=== PATIENT | female | born 1995 | race Caucasian/White ===

== ENCOUNTER 2021-06-11 22:16 | Observation (INO) | payer BC, OTHER ==
[2021-06-12] MEDS ORDERED: ONDANSETRON 4 MG/2 ML VIAL IVP STA ×2 (02:15→04:13)
[2021-06-12] MEDS ORDERED: SODIUM CHLORIDE 0.9% 1,000 ML IV STA ×2 (02:15→06:44)
[2021-06-12] MEDS ORDERED: ACETAMINOPHEN TAB 325 MG TAB PO STA (02:16)
[2021-06-12 02:49] LABS: Basophils % (A) 0 %; Eosinophils % (A) 0 %; HCT 44.6 % (34.0-46.0); HGB 15.1 gm/dL (11.4-16.0); Lymphocytes # (A) 1.3 k/uL (1.0-4.8); Lymphocytes % (A) 25 %; MCH 34.3 pg (25.0-35.0); MCHC 33.9 g/dL (31.0-37.0); MCV 101.1 fL (80.0-100.0); Mean Platelet Volume 8.4; Monocytes # (A) 0.5 k/uL (0-1.0); Monocytes % (A) 10 %; Neutrophils # (A) 3.2 k/uL (1.3-7.7); Neutrophils % (A) 61 %; Platelet Count 223 k/uL (150-450); RBC 4.41 m/uL (3.80-5.40); RDW 12.8 % (11.5-15.5); WBC 5.2 k/uL (3.8-10.6)
[2021-06-12 03:26] LABS: ALT 25 U/L (4-34); AST 41 U/L (14-36); African American GFR (CKD) >90 (>60 ml/min/1.73 sqM); Albumin 4.7 g/dL (3.5-5.0); Alkaline Phosphatase 40 U/L (38-126); Amylase 141 U/L (30-110); Anion Gap 21 mmol/L; Blood Urea Nitrogen 12 mg/dL (7-17); Calcium 9.9 mg/dL (8.4-10.2); Carbon Dioxide 14 mmol/L (22-30); Chloride 104 mmol/L (98-107); Glucose 146 mg/dL (74-99); Lipase 161 U/L (23-300); Non-African American GFR(CKD) 81 (>60 ml/min/1.73 sqM); Potassium 2.9 mmol/L (3.5-5.1); Sodium 139 mmol/L (137-145); Total Bilirubin 0.4 mg/dL (0.2-1.3); Total Protein 7.9 g/dL (6.3-8.2)
[2021-06-12 04:09] LABS: Appearance,Urine Cloudy (Clear); Bacteria,Urine Rare /hpf; Bilirubin,Urine Negative (Negative); Blood,Urine Negative (Negative); Color,Urine Yellow; Glucose,Urine (UA) 1+ (Negative); Hyaline Casts,Urine 18 /lpf (0-2); Leukocyte Esterase,Urine Negative (Negative); Mucus,Urine Many /hpf; Nitrite,Urine Negative (Negative); Protein,Urine 3+ (Negative); RBC,Urine 2 /hpf (0-5); Specific Gravity,Urine 1.039 (1.001-1.035); Squamous Epithelial Cell,Urine 2 /hpf (0-4); WBC,Urine 2 /hpf (0-5)
[2021-06-12 04:29] LABS: Ketones,Urine 3+ (Negative)
--- NOTE | 2021-06-12 04:30 | ED ---
General Adult HPI - General Chief complaint: Nausea/Vomiting/Diarrhea Stated complaint: Vomiting,SOB Time Seen by Provider: 06/12/21 02:15 Source: patient Mode of arrival: ambulatory Limitations: no limitations - History of Present Illness Initial comments: This patient is 25-year-old woman who presents to be evaluated for intractable vomiting. The patient states that she was in her usual state of health until on June 09. Patient began to have fevers, little bit of cough and then was also having vomiting. She states the symptoms worsened yesterday and she has not been able to keep much in way of fluids down. She has been trying to take Pedi alyte popsicles but even vomiting after that. The patient had been seen at clinic had nasal swabs sent that come back positive for influenza A. She did have code swab that was negative. Onset/Timin -: days(s) Consistency: constant Improves with: none Worsens with: none Associated Symptoms: cough, fever/chills, headaches, malaise, nausea/vomiting Treatments Prior to Arrival: none - Related Data Allergies Allergy/AdvReac Type Severity Reaction Status Date / Time No Known Allergies Allergy Verified 06/12/21 04:13 Review of Systems ROS Statement: Those systems with pertinent positive or pertinent negative responses have been documented in the HPI. ROS Other: All systems not noted in ROS Statement are negative. Constitutional: Reports: fever, chills Eyes: Denies: vision change ENT: Denies: ear pain, throat pain Respiratory: Reports: cough Cardiovascular: Reports: palpitations. Denies: chest pain, syncope Gastrointestinal: Reports: as per HPI, nausea, vomiting Genitourinary: Denies: dysuria, hematuria, abnormal menses Musculoskeletal: Denies: back pain Skin: Denies: rash Neurological: Reports: headache. Denies: weakness, numbness Past Medical History Past Medical History: No Reported History Additional Past Medical History / Comment(s): lump in breast. History of Any Multi-Drug Resistant Organisms: None Reported Past Surgical History: No Surgical Hx Reported Additional Past Surgical History / Comment(s): wisdom teeth Past Psychological History: No Psychological Hx Reported Smoking Status: Never smoker Past Alcohol Use History: Occasional Past Drug Use History: Marijuana General Exam Limitations: no limitations General appearance: alert, in no apparent distress Head exam: Present: atraumatic, normocephalic Eye exam: Present: normal appearance. Absent: scleral icterus, conjunctival injection ENT exam: Present: normal oropharynx Neck exam: Present: normal inspection Respiratory exam: Present: normal lung sounds bilaterally. Absent: respiratory distress, wheezes, rales, rhonchi, stridor Cardiovascular Exam: Present: regular rate, normal rhythm, normal heart sounds. Absent: systolic murmur, diastolic murmur, rubs, gallop GI/Abdominal exam: Present: soft. Absent: distended, tenderness, guarding, rebound, rigid, mass Extremities exam: Present: normal inspection, normal capillary refill. Absent: pedal edema, calf tenderness Back exam: Present: normal inspection. Absent: CVA tenderness (R), CVA tenderness (L) Neurological exam: Present: alert, oriented X3, CN II-XII intact. Absent: motor sensory deficit Skin exam: Present: warm, dry, intact, normal color. Absent: rash Course Vital Signs 06/12/21 06/12/21 06/12/21 00:05 00:12 00:49 Temperature 99.4 F 99.1 F Pulse Rate 83 62 Respiratory 20 Rate Blood Pressure 110/75 163/92 O2 Sat by Pulse 97 100 Oximetry 06/12/21 05:01 Temperature Pulse Rate 71 Respiratory 16 Rate Blood Pressure 109/71 O2 Sat by Pulse 100 Oximetry EKG Findings - EKG Results: EKG: interpreted by GIACOMO, sinus rhythm, normal axis, normal QRS, normal ST/T EKG shows: bradycardia (Rate 53 bpm) Medical Decision Making - Medical Decision Making Patient is a 25-year-old woman who presents with constellation of symptoms consistent with viral syndrome. While the patient was being triaged here she did have onset of generalized tonic-clonic seizure lasting between 30 and 60 seconds and spontaneously resolving. The patient did have approximately 3-5 minutes postictal period and then seemed to be back at baseline. The patient to have anion gap metabolic acidosis, most consistent with starvation ketoacidosis. The patient did have some glucose in the urine, estevan r appears that this urine specimen obtained after she had been placed on D50. - Lab Data Result diagrams: 06/12/21 02:15 06/12/21 02:15 Lab Results 06/12/21 06/12/21 06/12/21 Range/Units 02:15 02:15 02:15 WBC 5.2 (3.8-10.6) k/uL RBC 4.41 (3.80-5.40) m/uL Hgb 15.1 (11.4-16.0) gm/dL Hct 44.6 (34.0-46.0) % MCV 101.1 H (80.0-100.0) fL MCH 34.3 (25.0-35.0) pg MCHC 33.9 (31.0-37.0) g/dL RDW 12.8 (11.5-15.5) % Plt Count 223 (150-450) k/uL MPV 8.4 Neutrophils % 61 % Lymphocytes % 25 % Monocytes % 10 % Eosinophils % 0 % Basophils % 0 % Neutrophils # 3.2 (1.3-7.7) k/uL Lymphocytes # 1.3 (1.0-4.8) k/uL Monocytes # 0.5 (0-1.0) k/uL Eosinophils # 0.0 (0-0.7) k/uL Basophils # 0.0 (0-0.2) k/uL Sodium 139 (137-145) mmol/L Potassium 2.9 L (3.5-5.1) mmol/L Chloride 104 (98-107) mmol/L Carbon Dioxide 14 L (22-30) mmol/L Anion Gap 21 mmol/L BUN 12 (7-17) mg/dL Creatinine 0.96 (0.52-1.04) mg/dL Est GFR (CKD-EPI)AfAm >90 (>60 ml/min/1.73 sqM) Est GFR (CKD-EPI)NonAf 81 (>60 ml/min/1.73 sqM) Glucose 146 H (74-99) mg/dL Calcium 9.9 (8.4-10.2) mg/dL Total Bilirubin 0.4 (0.2-1.3) mg/dL AST 41 H (14-36) U/L ALT 25 (4-34) U/L Alkaline Phosphatase 40 (38-126) U/L Total Protein 7.9 (6.3-8.2) g/dL Albumin 4.7 (3.5-5.0) g/dL Amylase 141 H (30-110) U/L Lipase 161 (23-300) U/L Urine Color Urine Appearance (Clear) Urine pH (5.0-8.0) Ur Specific [place] (1.001-1.035) Urine Protein (Negative) Urine Glucose (UA) (Negative) Urine Ketones (Negative) Urine Blood (Negative) Urine Nitrite (Negative) Urine Bilirubin (Negative) Urine Urobilinogen (<2.0) mg/dL Ur Leukocyte Esterase (Negative) Urine RBC (0-5) /hpf Urine WBC (0-5) /hpf Ur Squamous Epith Cells (0-4) /hpf Urine Bacteria (None) /hpf Hyaline Casts (0-2) /lpf Urine Mucus (None) /hpf Urine HCG, Qual (Not Detectd) Acetone, Qual Positive (Negative) 06/12/21 06/12/21 Range/Units 03:40 03:40 WBC (3.8-10.6) k/uL RBC (3.80-5.40) m/uL Hgb (11.4-16.0) gm/dL Hct (34.0-46.0) % MCV (80.0-100.0) fL MCH (25.0-35.0) pg MCHC (31.0-37.0) g/dL RDW (11.5-15.5) % Plt Count (150-450) k/uL MPV Neutrophils % % Lymphocytes % % Monocytes % % Eosinophils % % Basophils % % Neutrophils # (1.3-7.7) k/uL Lymphocytes # (1.0-4.8) k/uL Monocytes # (0-1.0) k/uL Eosinophils # (0-0.7) k/uL Basophils # (0-0.2) k/uL Sodium (137-145) mmol/L Potassium (3.5-5.1) mmol/L Chloride (98-107) mmol/L Carbon Dioxide (22-30) mmol/L Anion Gap mmol/L BUN (7-17) mg/dL Creatinine (0.52-1.04) mg/dL Est GFR (CKD-EPI)AfAm (>60 ml/min/1.73 sqM) Est GFR (CKD-EPI)NonAf (>60 ml/min/1.73 sqM) Glucose (74-99) mg/dL Calcium (8.4-10.2) mg/dL Total Bilirubin (0.2-1.3) mg/dL AST (14-36) U/L ALT (4-34) U/L Alkaline Phosphatase (38-126) U/L Total Protein (6.3-8.2) g/dL Albumin (3.5-5.0) g/dL Amylase (30-110) U/L Lipase (23-300) U/L Urine Color Yellow Urine Appearance Cloudy H (Clear) Urine pH 6.0 (5.0-8.0) Ur Specific [place] 1.039 H (1.001-1.035) Urine Protein 3+ H (Negative) Urine Glucose (UA) 1+ H (Negative) Urine Ketones 3+ H (Negative) Urine Blood Negative (Negative) Urine Nitrite Negative (Negative) Urine Bilirubin Negative (Negative) Urine Urobilinogen 2.0 (<2.0) mg/dL Ur Leukocyte Esterase Negative (Negative) Urine RBC 2 (0-5) /hpf Urine WBC 2 (0-5) /hpf Ur Squamous Epith Cells 2 (0-4) /hpf Urine Bacteria Rare H (None) /hpf Hyaline Casts 18 H (0-2) /lpf Urine Mucus Many H (None) /hpf Urine HCG, Qual Not Detected (Not Detectd) Acetone, Qual (Negative) Disposition Clinical Impression: Intractable vomiting with nausea, Starvation ketoacidosis, Hypokalemia Disposition: HOME SELF-CARE Condition: Fair Is patient prescribed a controlled substance at d/c from ED?: No Referrals: None,Stated [Primary Care Provider] - 1-2 days
[2021-06-12] MEDS ORDERED: LORazepam 2 MG/ML INJ IV STA (04:44)
[2021-06-12] MEDS ORDERED: METOCLOPRAMIDE 5 MG/ML 2 ML VIAL IVP STA (04:44)
[2021-06-12] MEDS ORDERED: DEXTROSE 5%-0.45% NACL 1,000 ML IV ONE (04:44)
[2021-06-12] MEDS ORDERED: INSULIN REGULAR 100 UNIT/ML VIAL (IV) IV STA (06:23)
[2021-06-12] MEDS ORDERED: NALOXONE 0.4 MG/ML 1 ML VIAL IV PRN ×2 (06:41→09:36)
[2021-06-12] MEDS ORDERED: PROMETHAZINE 25 MG TAB PO PRN (06:41)
[2021-06-12] MEDS ORDERED: MAG HYDROX/AL HYDROX/SIMETH 30 ML CUP PO PRN (06:41)
[2021-06-12] MEDS ORDERED: POTASSIUM BICARBONATE/CIT AC 20 MEQ TABLET.EFF PO ONE (06:45)
[2021-06-12] MEDS ORDERED: DEXTROSE 5%-LACTATED RINGERS 1,000 ML IV SCH (09:30)
--- NOTE | 2021-06-12 10:12 | CT ---
EXAMINATION TYPE: CT brain wo con DATE OF EXAM: 06/12/2021 COMPARISON: None HISTORY: seizure CT DLP: [address] of the brain was performed. The ventricles, basal cisterns and sulci overlying the cerebral convexities demonstrate a normal appe arance. There is no evidence for intracranial hemorrhage or sulcal effacement. No mass effects are seen. Osseous calvarium is intact. If symptoms persist consider MRI as clinically warranted. IMPRESSION: 1. No acute intracranial process is seen at this time.
--- NOTE | 2021-06-12 10:25 | P.HPIM ---
History of Present Illness Chief Complaint: Nausea and vomiting This is a very pleasant 25-year-old female who came to emergency Department fibrillation of intractable nausea and vomiting. 2 days prior to this admission patient developed URI-like symptoms with body aches, fever or malaise. She was diagnosed with influenza and prescribed him a flu. We did also told to symptoms she had mild durable nausea but subsequently her nausea worsened and became intractable. She had poor oral intake. She couldn't tolerate any food. She was nauseated and throwing up even without food. She did not have any abdominal pain. She not have any changes in the bowel movements no diarrhea no blood in the stool. She denied any shortness of breath or difficulty breathing or chest pains. Patient became very weak and dehydrated and came to emergency department. She was found to be profoundly dehydrated with ketones in her urine ketoacidosis hypokalemia. She was given antiemetics and IV fluids. While being observed in the emergency department apparently she had seizure-like activity in the form of alternate consciousness and tonic-clonic movements. This lasted apparently couple minutes and she received Ativan. Patient herself right now is slightly sleepy but able to provide a reliable history. She states that she is feeling much better. She is urinating well. She denies any headache vision changes or nausea this time. Patient has no history of seizures no family history of seizures and history of head trauma. She was not sleeping very well the last couple days. She does not take any drugs or drink any alcohol. She is accompanied by her mother "corroborates this story. Patient takes no medications at home. Review of Systems All systems: negative Past Medical History Past Medical History: No Reported History Additional Past Medical History / Comment(s): lump in breast. History of Any Multi-Drug Resistant Organisms: None Reported Past Surgical History: No Surgical Hx Reported Additional Past Surgical History / Comment(s): wisdom teeth Past Psychological History: No Psychological Hx Reported Smoking Status: Never smoker Past Alcohol Use History: Occasional Past Drug Use History: Marijuana Medications and Allergies Home Medications Medication Instructions Recorded Confirmed Type Ethinyl Estradiol/Drospirenone 1 tab PO DAILY 06/12/21 06/12/21 History [Macy 28 Tablet] Ondansetron [Zofran ODT] 4 mg PO Q6H PRN 06/12/21 06/12/21 History Oseltamivir [Tamiflu] 75 mg PO BID 06/12/21 06/12/21 History Allergies Allergy/AdvReac Type Severity Reaction Status Date / Time banana Allergy Rash/Hives Verified 06/12/21 07:52 Latex, Natural Rubber Allergy Rash/Hives Verified 06/12/21 07:52 Physical Exam Vitals: Vital Signs Temp Pulse Resp BP Pulse Ox 06/12/21 08:22 98 F 68 18 109/71 97 06/12/21 05:01 71 16 109/71 100 06/12/21 00:49 99.1 F 62 163/92 100 06/12/21 00:12 99.4 F 06/12/21 00:05 83 20 110/75 97 Intake and Output 06/11/21 06/12/21 06/12/21 22:59 06:59 14:59 Other: Weight 61.235 kg Patient is awake but sleepy but cooperative oriented 3 Head and neck: No signs of trauma anicteric sclerae oropharyngeal mucosa is dry but without any lesions or tongue biting no facial asymmetry no neck masses no J VD Lungs: Clear to auscultation Cardiovascular: Regular rhythm and rate Abdomen: Bowel sounds are present throughout and there are normal fashion, abdomen is soft, no tenderness no epigastric tenderness no right upper quadrant tenderness no flank tenderness no rigidity and no guarding Extremities: No peripheral edema warm and well perfused no cyanosis Neurological: Cranial nerves: 2-12 are intact, no facial symmetry tongue protrudes in midline no nystagmus pupils are round reactive to light speech is fluent and coherent Multiple motor strength is 5 out of 5 in upper and lower extremity, no ankle clonus, plantars flexor bilaterally, patellar deep tendon reflexes are 1+ bilateral Musculoskeletal: No joint swelling or deformities Skin: No rashes no icterus Results CBC & Chem 7: 06/12/21 02:15 06/12/21 02:15 Labs: Abnormal Lab Results - Last 24 Hours (Table) 06/12/21 06/12/21 06/12/21 Range/Units 02:15 02:15 03:40 MCV 101.1 H (80.0-100.0) fL Potassium 2.9 L (3.5-5.1) mmol/L Carbon Dioxide 14 L (22-30) mmol/L Glucose 146 H (74-99) mg/dL AST 41 H (14-36) U/L Amylase 141 H (30-110) U/L Urine Appearance Cloudy H (Clear) Ur Specific [place] 1.039 H (1.001-1.035) Urine Protein 3+ H (Negative) Urine Glucose (UA) 1+ H (Negative) Urine Ketones 3+ H (Negative) Urine Bacteria Rare H (None) /hpf Hyaline Casts 18 H (0-2) /lpf Urine Mucus Many H (None) /hpf Assessment and Plan Plan: #Intractable nausea and vomiting This could be related to acute viral illness and worsened by use of Tamiflu Abdominal examination is benign abdomen is soft without tenderness Lipase is normal Continue antiemetics, will hold Tamiflu for now Pepcid Imaging if no rapid clinical improvement #Ketoacidosis with severe dehydration Likely related to starvation ketoacidosis Doubt nathalia diabetic component Continue IV fluids, with dextrose Will monitor blood glucose, repeat BMP this afternoon #Hypokalemia Due to dehydration and decreased by mouth intake Continue volume repletion, potassium replacement given in emergency department #Seizure No family or personal history of seizures No history of drinking Correction of metabolic derangements Neurology consultation ordered #URI due to influenza Patient reports no any significant respiratory symptoms no shortness of breath lungs are clear to auscultation Supportive care Admitted under observation Full code Patient's mother is a surrogate decision make
--- NOTE | 2021-06-12 11:30 | P.CNNES ---
History of Present Illness Consult date: 06/12/21 Requesting physician: Migel Lopez Reason for Consult: seizure History of Present Illness: This is a 25-year-old right-handed young woman with no past medical history who presented to the emergency department on 06/11/2021 for intractable vomiting. Patient is accompanied with her father's at bedside. Neurology is consulted for seizure-like activity. According to the patient the since this past Tuesday she's been having intractable vomiting as well as that she noticed that the she had elevated temperature of 101.9. She went to urgent care and she was tested for coivd-19 and was negative but on Tuesday was tested for Influenza A and was test positive. She stated that that she was continued to have the vomiting episodes as a result she came to the hospital. He said prior to 2 AM on 06/12/2021 she was of vomiting and she was dehydrated and she had a sensation she was about to pass out and all of a sudden she was a witnessed by her boyfriend that her eyes were rolling back and the she was posturing. She said that during the episode that she had loss of consciousness. She denied any episode of urinary or bowel incontinence or any tongue bite or soreness associate with this. She denies any history of seizures. I spoke with the ED nurse and that he did not know about the episode of the seizure that he was informed from the overnight nurse. Per ED note, generalized tonic-clonic seizure lasting between 30-60 seconds and spontaneously resolving. She was post ictal for 3-5 minutes and was back at baseline. The ED note the patient has on workup at an eye on gap metabolic acidosis most consistent with starvation ketoacidosis. Patient continues to be nauseous and has generalized weakness. He denies of any focal weakness, headaches, difficulty getting her words out or swallowing. She does not have any history of seizures. Ration history as the normal vaginal delivery in no complication. There is no family history of seizures. It states that she uses recreational marijuana but denies any tobacco use or any illicit drug use. The only medication the patient uses at home is a control pill. Some other workup in the hospital consisted of: Initial vital signs as a blood pressure of 110/75, heart rate of 83, respiratory of 20, temperature of 99.4 Fahrenheit oral, pulse ox of 97% room air. Her MCV is 101.1 which is slightly elevated otherwise his CBC with differential is unremarkable. Sodium is 139, creatinine is 0.96, initial serum glucose is 146, calcium 9.9, T 41, ALT of 25. Urinalysis is negative for urinary tract infection. As glucose in the urine. Acetone is positive. Coronavirus: Not detected. Review of Systems Review of system: The 12 point system was reviewed and apparent positive and negative per HPI. Past Medical History Past Medical History: No Reported History Additional Past Medical History / Comment(s): lump in breast. History of Any Multi-Drug Resistant Organisms: None Reported Past Surgical History: No Surgical Hx Reported Additional Past Surgical History / Comment(s): wisdom teeth Past Psychological History: No Psychological Hx Reported Smoking Status: Never smoker Past Alcohol Use History: Occasional Past Drug Use History: Marijuana - Past Family History Father Family Medical History: No Reported History Additional Family Medical History / Comment(s): Father is healthy Mother Family Medical History: No Reported History Additional Family Medical History / Comment(s): Mother is healthy Medications and Allergies Home Medications Medication Instructions Recorded Confirmed Type Ethinyl Estradiol/Drospirenone 1 tab PO DAILY 06/12/21 06/12/21 History [Macy 28 Tablet] Ondansetron [Zofran ODT] 4 mg PO Q6H PRN 06/12/21 06/12/21 History Oseltamivir [Tamiflu] 75 mg PO BID 06/12/21 06/12/21 History Allergies Allergy/AdvReac Type Severity Reaction Status Date / Time banana Allergy Rash/Hives Verified 06/12/21 07:52 Latex, Natural Rubber Allergy Rash/Hives Verified 06/12/21 07:52 Physical Examination - Vital Signs Vital Signs: Vital Signs Temp Pulse Resp BP Pulse Ox 06/12/21 08:22 98 F 68 18 109/71 97 06/12/21 05:01 71 16 109/71 100 06/12/21 00:49 99.1 F 62 163/92 100 06/12/21 00:12 99.4 F 06/12/21 00:05 83 20 110/75 97 Intake and Output 06/11/21 06/12/21 06/12/21 22:59 06:59 14:59 Other: Weight 61.235 kg GENERAL: The patient is lying in bed and is not in acute distress but seems lethargic. CHEST: The heart rate is regular rate rhythm. No murmurs to auscultation. LUNG: Clear to auscultation bilaterally no wheezing noted throughout. Not labored breathing. ABDOMEN/GI: Bowel sounds present in all 4 quadrants. No tenderness to palpation throughout. NEUROLOGICAL: Higher mental function: The patient is awake, alert, oriented to self, place and time. Patient is following commands. No aphasia and no neglect. Cranial nerves: The pupils are round, equal and reactive to light and accommodation. Visual bennett are full to confrontation throughout. Extraocular movement is intact no nystagmus is noted. Facial sensation is normal to touch throughout. The facial strength is normal throughout. Hearing is normal bilaterally to hand rub. Tongue is midline and moved [id number] without any difficulty. No dysarthria is noted. Shoulder shrug is normal bilaterally. Motor: Gait is deferred. The strength is 5 over 5 throughout. Normal tone and bulk. Cerebellum: Normal finger to nose heel to martinez bilaterally. Sensation: Sensation is normal to touch throughout. Reflexes (right/left): 2+ throughout. Plantars are downgoing bilaterally. Results - Laboratory Findings CBC and BMP: 06/12/21 02:15 06/12/21 14:29 Abnormal Lab Findings: Abnormal Labs 06/12/21 06/12/21 06/12/21 02:15 02:15 03:40 MCV 101.1 H Potassium 2.9 L Carbon Dioxide 14 L Glucose 146 H AST 41 H Amylase 141 H Urine Appearance Cloudy H Ur Specific [place] 1.039 H Urine Protein 3+ H Urine Glucose (UA) 1+ H Urine Ketones 3+ H Urine Bacteria Rare H Hyaline Casts 18 H Urine Mucus Many H Assessment and Plan Assessment: Seems convulsive syncope: (per ED note, had GTC lasting 30-60 seconds. She denies tongue bite, foaming around the mouth, urinary or bowel incontinence. No history of seizure). I feel due to dehydration/metabolic derangement from vomiting. Intractable vomiting Influenza A (tested positive this past Tuesday) Anion gap metabolic acidosis most consistent with starvation ketoacidosis due to intractable vomiting Plan: I ordered a CT of the head without. I ordered routine EEG. I'll not start the patient on an antiepileptic drug list there is epileptiform discharges or seizure on EEG Placed the patient on seizure precaution and seizure pads Placed on Q4 hour neuro checks The patient will be monitored for an additional day. Upon discharge the patient needs to follow-up with a neurologist within 1-2 weeks. We'll defer the rest of medical management to the primary team. The plan is discussed with the patient and her father who are at bedside. Also plan was relayed to primary team. Thank you for the consultation. UPDATE: CT HEAD: Was reported as no acute intracranial process seen at this time. I personally reviewed the CT that there is no acute or subacute ischemia there is no intraparenchymal hemorrhage. [place] the CT was unremarkable. Routine EEG is normal. If the patient continues to be doing well no further neurological workup is needed. Dr. Wallace is starting neurology service tomorrow AM. Tushar Earl M.D. Neuro-Hospitalist Time with Patient: Greater than 30
[2021-06-12 12:35] LABS: Glucose,Whole Blood 85 mg/dL (75-99)
--- NOTE | 2021-06-12 13:41 | EEG ---
ELECTROENCEPHALOGRAM REPORT DATE OF SERVICE: 06/12/2021. CLINICAL HISTORY: This is a 25-year-old woman who had an episode of jerking of the extremities with loss of consciousness. The video EEG is obtained to evaluate for seizure epileptiform activity. RELEVANT MEDICATION: The patient is not on any antiepileptic drugs. EEG TYPE: A routine 21 channel EEG is performed with video using the 10/20 electrode placement system. DESCRIPTION: Wakefulness and drowsiness are obtained. During wakefulness, the posterior dominant rhythm consists of low to moderate voltage that is well modulated, well sustained of 10 hertz activity. There was no physiological stage 2 sleep architecture. There is no focal slowing. Interictal and ictal is none. ACTIVATION PROCEDURE: There is a positive photic drive at 10 hertz. There is no abnormality noted during the photic stimulation. Hyperventilation is not performed. CLINICAL INTERPRETATION: This is a normal routine EEG during awake and drowsy state. There are no focal slowing, epileptiform discharges or seizure on the EEG. Clinical correlation is recommended. DANIAL / LULU: [id number] / MELONY
[2021-06-12 15:00] LABS: African American GFR (CKD) >90 (>60 ml/min/1.73 sqM); Anion Gap 9 mmol/L; Blood Urea Nitrogen 5 mg/dL (7-17); Calcium 7.8 mg/dL (8.4-10.2); Carbon Dioxide 22 mmol/L (22-30); Chloride 106 mmol/L (98-107); Glucose 89 mg/dL (74-99); Non-African American GFR(CKD) >90 (>60 ml/min/1.73 sqM); Potassium 3.5 mmol/L (3.5-5.1); Sodium 137 mmol/L (137-145)
[2021-06-12] MEDS: DEXTROSE 5%-LACTATED RINGERS 1,000 ML with POTASSIUM CHLORIDE 20 MEQ IV SCH ×2 (15:01)
[2021-06-12] MEDS: FAMOTIDINE 20 MG TAB PO SCH ×2 (15:01→21:17)
[2021-06-12 17:18] LABS: Glucose,Whole Blood 86 mg/dL (75-99)
[2021-06-12] MEDS: METOCLOPRAMIDE 5 MG/ML 2 ML VIAL IVP PRN (17:50)
[2021-06-12 20:33] LABS: Glucose,Whole Blood 89 mg/dL (75-99)
[2021-06-13] MEDS: METOCLOPRAMIDE 5 MG/ML 2 ML VIAL IVP PRN (02:59)
[2021-06-13] MEDS: DEXTROSE 5%-LACTATED RINGERS 1,000 ML with POTASSIUM CHLORIDE 20 MEQ IV SCH ×4 (05:55→08:14)
[2021-06-13 07:51] LABS: Glucose,Whole Blood 96 mg/dL (75-99)
[2021-06-13] MEDS: FAMOTIDINE 20 MG TAB PO SCH (08:09)
[2021-06-13 09:45] LABS: African American GFR (CKD) >90 (>60 ml/min/1.73 sqM); Anion Gap 11 mmol/L; Blood Urea Nitrogen 4 mg/dL (7-17); Calcium 8.8 mg/dL (8.4-10.2); Carbon Dioxide 21 mmol/L (22-30); Chloride 106 mmol/L (98-107); Glucose 106 mg/dL (74-99); Magnesium 1.7 mg/dL (1.6-2.3); Non-African American GFR(CKD) >90 (>60 ml/min/1.73 sqM); Potassium 3.4 mmol/L (3.5-5.1); Sodium 138 mmol/L (137-145)
[2021-06-13 10:09] VITALS: BMI 20.5
--- NOTE | 2021-06-13 11:24 | P.PN ---
Subjective 25-year-old female without significant medical history develop respiratory illness and diagnosed with influenza A one week ago. Started Tamiflu 2 days prior to this admission. Started developing significant nausea and vomiting, diarrhea decreased by mouth intake significant dehydration. Had episodes of possible seizures in the emergency department. Patient is much better this morning. Her nausea and vomiting resolved. She had one episode of watery diarrhea this morning, nonbloody. No abdominal pain. Her appetite is improving and she is able to tolerate food. Bilateral abnormalities improving. Vital signs stable remains afebrile. Objective - Vital Signs Vital signs: Vital Signs Temp 99.0 F 06/13/21 07:00 Pulse 84 06/13/21 08:00 Resp 16 06/13/21 08:00 BP 93/55 06/13/21 07:00 Pulse Ox 94 L 06/13/21 07:00 Intake & Output 06/12/21 06/13/21 06/13/21 18:59 06:59 18:59 Intake Total 1300 0 Balance 1300 0 Weight 61.235 kg 61.235 kg Intake: Intake, IV Titration 900 Amount Dextrose 5%-Lactated 900 Ringers 1,000 ml @ 100 mls/hr IV .Q10H6M ALEX with Potassium Chloride 20 meq Rx#:[id number] Oral 400 0 Other: Voiding Method Toilet # Voids 4 2 # Bowel Movements 2 - Constitutional General appearance: Present: no acute distress - EENT Eyes: Present: anicteric sclerae, EOMI, PERRLA ENT: Present: normal oropharynx. Absent: pharyngeal erythema - Neck Neck: Present: normal ROM. Absent: rigidity - Respiratory Respiratory: bilateral: CTA - Cardiovascular Rhythm: regular Heart sounds: normal: S1, S2 - Gastrointestinal General gastrointestinal: Present: normal bowel sounds, soft. Absent: distended, hepatomegaly, organomegaly, tenderness - Integumentary Integumentary: Absent: jaundiced - Neurologic Neurologic: Absent: CNII-XII intact, focal deficits - Musculoskeletal Musculoskeletal: Absent: generalized weakness - Psychiatric Psychiatric: Present: A&O x's 3 - Labs CBC & Chem 7: 06/12/21 02:15 06/13/21 08:50 Labs: Abnormal Lab Results - Last 24 Hours (Table) 06/12/21 06/12/21 06/13/21 Range/Units 14:29 15:40 08:50 Potassium 3.4 L (3.5-5.1) mmol/L Carbon Dioxide 21 L (22-30) mmol/L BUN 5 L 4 L (7-17) mg/dL Glucose 106 H (74-99) mg/dL Calcium 7.8 L (8.4-10.2) mg/dL Influenza Type A RNA Detected H (Not Detectd) Assessment and Plan Plan: #Intractable nausea and vomiting and diarrhea Acute gastroenteritis due to acute viral illness and worsened by use of Tamiflu Abdominal examination is benign abdomen is soft without tenderness, no right upper quadrant tenderness Patient is improving and tolerating diet Lipase is normal, liver enzymes, bilirubin, alk phos normal, WBC is normal Continue Pepcid, Maalox when necessary DISCONTINUE Tamiflu, patient is asymptomatic and ultimately and treatment Encourage out of bed, encourage oral intake and oral hydration Ultrasound right upper quadrant #Ketoacidosis with severe dehydration and electrolyte disturbances Likely related to starvation ketoacidosis Blood glucose stable Improved Discontinue IV fluids, encourage oral hydration #Seizure No family or personal history of seizures No history of drinking This remains questionable, no further episodes Could be related to severe dehydration ketoacidosis and electrolyte derangements Correction of metabolic derangements Discussed with neurology EEG and CT of the head within normal limits Discussed with the patient, no driving for 6 months, patient agreeable #URI due to influenza Lungs are clear, no respiratory symptoms remains afebrile Disposition: Patient will be discharged home, once cleared by neurology today. Encourage oral rehydration and bowel rest with a soft light diet for next few days Recheck her labs BMP CBC next week with her primary care physician No driving for 6 months, this was communicated with the patient and she was agreeable with this.
[2021-06-13] MEDS ORDERED: POTASSIUM BICARBONATE/CIT AC 20 MEQ TABLET.EFF PO ONE (12:00)
[2021-06-13 13:30] VITALS: BP 101/61; PULSE 53; RESP 18; TEMP 99.4
--- NOTE | 2021-06-13 16:06 | US ---
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 EXAM MEASUREMENTS: Liver Length: 13.0 cm Gallbladder Wall: 0.2cm CBD: 0.2 cm Right Kidney: 11.0 x 3.7 x 5.4 cm Pancreas: wnl Liver: wnl Gallbladder: wnl Evidence for sonographic Emmanuel's sign: no CBD: wnl Right Kidney: wnl IMPRESSION: No gallstones or dilated ducts. Normal liver. No evidence of pancreatic mass. No free fluid.
--- NOTE | 2021-06-13 16:14 | P.DS ---
Providers Date of admission: 06/12/21 06:44 Attending physician: Zan Restrepo MD Consults: 06/12/21 07:56 Consult Physician Routine Consulting Provider: Tushar Earl Consult Reason/Comments: Seizures Do you want consulting provider notified?: Yes Primary care physician: Stated None Hospital Course: Admission diagnoses: Dehydration Rule out seizure Discharge diagnosis #viral gastroenteritis #Severe dehydration #Starvation ketoacidosis #Rule out seizure #Influenza A Consultants\ Neurology Pertinent tests: CT of the head without abnormalities, EEG no seizure activity, ultrasound of abdomen no gallbladder issues Disposition: Patient was discharged home. She is tolerating regular diet. She will take Pepcid and Maalox when necessary. Follow-up with PCP and follow up with neurologist office. Patient was advised not to drive for 6 months until further evolution by neurologists in the outpatient basis. Reason for admission This is a very pleasant 25-year-old female without medical problems was diagnosed with influenza A about a week prior to coming to the hospital. She started developing intractable nausea and vomiting and watery diarrhea. She was not able to keep any oral intake for 3 days prior to this admission. Patient was started on Tamiflu about 2 days prior to this admission. Patient did not have any respiratory problems no fever no chills no abdominal pain. In the MRSA department she was showing signs of significant dehydration with ketones in the urine serum bicarb 14 potassium 2.98. On an depleted. She was hydrated emergency department and they will consider to discharge her home. However per ER personnel they felt the patient had episode of tonic-clonic seizure. Demyelination my understanding no postictal state bladder or stool incontinence was noted. Patient was admitted for further evaluation Hospital course Patient was admitted for observation. She was hydrated with IV fluids and electrolyte replacement. She had CT of the head and EEG as per neurology recommendations which were normal. It was unclear patient had the true seizure or dizziness was related to her significant dehydration ketoacidosis and lateral abnormalities. However patient remained asymptomatic throughout her hospital stay she significantly improved able to tolerate diet and she was discharged home in stable condition. 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 Patient Condition at Discharge: Fair Plan - Discharge Summary Discharge Rx Participant: No New Discharge Prescriptions: New Mag Hydrox/Al Hydrox/Simeth [Maalox] 15 ml PO Q6HR PRN #1 each PRN Reason: Indigestion Famotidine [Pepcid] 20 mg PO DAILY #30 tab Continue Ondansetron [Zofran ODT] 4 mg PO Q6H PRN PRN Reason: Nausea Ethinyl Estradiol/Drospirenone [Macy 28 Tablet] 1 tab PO DAILY Discontinued Oseltamivir [Tamiflu] 75 mg PO BID Discharge Medication List Ethinyl Estradiol/Drospirenone [Macy 28 Tablet] 1 tab PO DAILY 06/12/21 [History] Ondansetron [Zofran ODT] 4 mg PO Q6H PRN 06/12/21 [History] Famotidine [Pepcid] 20 mg PO DAILY #30 tab 06/13/21 [Rx] Mag Hydrox/Al Hydrox/Simeth [Maalox] 15 ml PO Q6HR PRN #1 each 06/13/21 [Rx] Follow up Appointment(s)/Referral(s): Fabrizio Berkowitz MD [Medical Doctor] - 1 Week None,Stated [Primary Care Provider] - 1-2 days Patient Instructions/Handouts: Seizure/Epilepsy Discharge Instructions & Follow-Up, Dehydration (DC) Activity/Diet/Wound Care/Special Instructions: Please contact your primary care physician for referral to neurologist As we discussed, No driving for 6 months; Discharge Disposition: HOME SELF-CARE
== END 2021-06-13 17:01 | disposition home or self-care (01) ==
LOC: EC 22:16 → 6NMEDSUR 06-12 06:44
PROVIDERS: ADMIT Internal Medicine; ATTEND Internal Medicine
DX: A08.4 Viral intestinal infection, unspecified (principal); E86.0 Dehydration; E87.2 Acidosis; J10.1 Influenza due to other identified influenza virus with other respiratory manifestations; E87.6 Hypokalemia; N63.0 Unspecified lump in unspecified breast; Z79.899 Other long term (current) drug therapy; Z91.040 Latex allergy status; Z91.018 Allergy to other foods; Z20.822 Contact with and (suspected) exposure to COVID-19; Z71.9 Counseling, unspecified
CPT/HCPCS: 96376 ×3; 96361 ×2; 96365; 96366; 96375; 99285; 36415; 95816; 93005; 80053; 80048 ×2; 82150; 82009; 83690; 83735; 85025; 81001; 81025; 87502; 87635; 76705; 70450; G0378 ×2; J2060; J2765 ×2; J2405; J3480 ×2